=== PATIENT | male | born 1950 | race Caucasian/White ===

== ENCOUNTER → 2016-10-01 | Outpatient (CLI) | payer OTHER, MEDICARE ==
[~2016-10-01] MED LIST: IOPAMIDOL (ISOVUE 370) 100 ML BTL IV ONE
[2016-10-01 10:10] LABS: CREATININE 0.7 mg/dL (0.7-1.3); GLOMERULAR FILTRATION RATE > 60
== END ==
LOC: FIMAGING 09:35
PROVIDERS: ATTEND Psychiatry & Neurology Neurology
DX: R51 Headache (principal); R29.818 Other symptoms and signs involving the nervous system
CPT/HCPCS: 70496; Q9967

== ENCOUNTER 2018-03-14 12:47 | Inpatient (IN) | payer OTHER, MEDICARE ==
[2018-03-14] MEDS ORDERED: NS 1,000 ML IV ONE ×2 (13:07→14:40)
--- NOTE | 2018-03-14 13:27 | EDPHY ---
H & P Stated Complaint: left face swelling today . since yest am felt off .chills Time Seen by Provider: 03/14/18 12:55 HPI/ROS: CHIEF COMPLAINT: Not feeling well, facial swelling HISTORY OF PRESENT ILLNESS: This is a 68-year-old male with history of diabetes and hypertension presents reporting that 2 days ago he began to feel poorly, like he was coming down with the flu. He had a low-grade fever and chills. Yesterday he continued to feel poorly, tired, run down, and had 1 episode of vomiting. This morning when he woke he noticed that the left side of his face was swollen. Patient denies any significant cold or cough symptoms. Denies any chest pain, shortness of breath, or urinary complaints. He has widespread poor dentition and has noticed that the upper left lateral incisor has been somewhat uncomfortable but denies cold sensitivity, hot sensitivity, or significant pain in this area. reports that he was complaining of fevers and chills yesterday but they did not take his temperature. No headache or lightheadedness. REVIEW OF SYSTEMS: A comprehensive 10 system review of systems was reviewed and is otherwise negative aside from elements mentioned in the history of present illness and medical decision making. PAST MEDICAL HISTORY: Diabetes, insulin dependent. Hypertension. SOCIAL HISTORY: Nonsmoker, no marijuana use. Reports rare alcohol use. VITAL SIGNS Reviewed by me. GENERAL: Well-developed, well-nourished, conversant, bright no obvious distress. Significant swelling of the left side of his face with loss of the nasal labial fold and drooping of the left side of the mouth. HEENT: Atraumatic. Eyes: Slight icterus, slightly injected. There is erythema and swelling extending from under the eye to the angle of the jaw. No erythema or swelling or tenderness on the neck. Mouth: moist mucous membranes. No erythema or lesions. Poor dentition throughout. Lateral left upper incisor is broken off with some erythema at the gumline. Posterior pharynx is clear. No tonsillar enlargement. No fullness or tenderness at the floor of the mouth. Neck: supple with no significant adenopathy. LUNGS: Clear to auscultation bilaterally, no wheezes, rhonchi or rales. CARDIAC: Regular rate and rhythm, no rubs, murmurs or gallops. ABDOMEN: Soft, nontender, nondistended, bowel sounds normal. BACK: No CVA tenderness. EXTREMITIES: No trauma. No edema. Range of motion is normal throughout. NEURO: Alert and oriented, left-sided facial droop. Cranial nerves otherwise intact. Motor strength 5/5 throughout with the exception of a symmetrical smile. Sensation intact to light touch. Able to fully close his eyes. Able to raise eyebrows symmetrically. SKIN: Warm and dry, widespread slightly scaly rash. PSYCHIATRIC: Normal mentation, no agitation. - Personal History Current Tetanus/Diphtheria Vaccine: Unsure Current Tetanus Diphtheria and Acellular Pertussis (TDAP): Unsure - Medical/Surgical History Hx Diabetes: Yes Hx Cardiac Disease: No Hx Renal Disease: No Other PMH: DM 2. Cholecystectomy. [facility] - Social History Smoking Status: Never smoked Constitutional: Initial Vital Signs Temperature (C) 37.4 C 03/14/18 12:52 Heart Rate 109 H 03/14/18 12:52 Respiratory Rate 18 03/14/18 12:52 Blood Pressure 155/100 H 03/14/18 12:52 O2 Sat (%) 93 03/14/18 12:52 O2 Delivery Mode Room Air Allergies/Adverse Reactions: No Known Allergies Allergy (Verified 03/14/18 20:36) Home Medications: Medication Instructions Recorded Atorvastatin Calcium [Lipitor 20 20 mg PO DAILY 03/14/18 mg (*)] Insulin Detemir [Levemir Flextouch] 90 unit SQ HS 03/14/18 Losartan/Hydrochlorothiazide 1 each PO HS 03/14/18 [Losartan-Hctz 100-25 mg Tab] Propranolol HCl [Inderal Xl] 120 mg PO HS 03/14/18 amLODIPine BESYLATE [Norvasc 10 mg 10 mg PO DAILY 03/14/18 (*)] metFORMIN HCL [Metformin HCl] 1,000 mg PO HS 03/14/18 Medical Decision Making - Diagnostics Imaging Results: Ct Head: Impression: Normal CT scan of the head. Results called and discussed with Sara Reynolds M.D., on March 14, 2018 at 1621. Dictated By: Noam Frederick MD CT Maxillofacial Impression: Left maxillary sinus opacification with soft tissue inflammatory changes anterior to the sinus with no definite drainable fluid collection identified at this time. Results called and discussed with Dr. Hoang on 03/14/2018 at 16:37. Dictated By: Noam Frederick MD Imaging: Discussed imaging studies w/ prescriptionist Radiologist ED Course/Re-evaluation: 69-year-old male with diabetes and hypertension presents with 2 days of feeling poorly and facial swelling today. On arrival he has a low-grade at 37.4 and a heart rate of 109. He describes fevers and chills at home. Evaluation for sepsis was undertaken. Patient's lactic acid is 1.5. Bilirubin is 2.5. Review of the records demonstrates patient's bilirubin has typically run between 1.7 and 2. Point of care testing for the CBC malfunctioned on numerous occasions. CBC was ordered at the [facility]. Patient received a L of normal saline. Heart rate diminished to 95. Repeat temperature was 37.5 degrees. Patient received 1 g Tylenol. On re-examination the patient reports feeling terrible, still achy, but overall looks relatively well. He does have an obvious left-sided facial droop which he and his state he has not had previously. Unclear if this is secondary to the swelling on the face, involvement of the peripheral 7th nerve, I see no rash to indicate herpes zoster. No headache. Patient noted the swelling on the side of his face this morning when he woke. Patient's course was discussed with Dr. Joe Deng, hospitalist service. At the time of this discussion the patient's CBC is pending. We will plan to admit the patient to the hospital for rule out sepsis, facial cellulitis, fever , diabetes. CT scan of the head as well as CT maxillofacial with IV contrast was ordered prior to the patient's transfer to [facility]. Clindamycin 600 mg ordered. Blood cultures were ordered. Urinalysis and urine culture was ordered. Differential Diagnosis: Differential diagnoses for the patient's symptom complex was considered including but not limited to the facial cellulitis, sinusitis, Patel's palsy, soft tissue section the neck, deep space abscess. Consult/Admit Bed Type: Dr. Ricth[facility] - Data Points Laboratory Results: Laboratory Results 03/15/18 04:38 03/15/18 04:38 Medications Given: Amlodipine Besylate (Norvasc) 10 mg PO HS [facility] Stop: 09/10/18 20:59 Last Admin: 03/15/18 21:47 Dose: 10 mg Atorvastatin Calcium (Lipitor) 20 mg PO HS [facility] Stop: 09/10/18 20:59 Last Admin: 03/15/18 21:47 Dose: 20 mg Enoxaparin Sodium (Lovenox) 40 mg SC DAILY [facility] Stop: 09/11/18 08:59 Last Admin: 03/15/18 09:11 Dose: 40 mg Hydrochlorothiazide (Hydrochlorothiazide) 25 mg PO HS [facility] Stop: 09/10/18 22:14 Last Admin: 03/15/18 21:44 Dose: 25 mg Sodium Chloride (Ns) 1,000 mls @ 75 mls/hr IV CONT [facility] Stop: 09/10/18 18:44 Last Admin: 03/14/18 19:59 Dose: 1,000 mls Ampicillin Sodium/Sulbactam (Sodium 3 gm/ Sodium Chloride) 100 mls @ 200 mls/ hr IV Q6HRS [facility] PRN Reason: Protocol Stop: 04/14/18 10:59 Last Admin: 03/15/18 23:58 Dose: 100 mls Insulin Human Lispro (Humalog Lispro) 0 unit SC TIDMEAL [facility] PRN Reason: Protocol Stop: 09/11/18 07:59 Last Admin: 03/15/18 21:31 Dose: Not Given Losartan Potassium (Cozaar) 100 mg PO HS [facility] Stop: 09/10/18 22:14 Last Admin: 03/15/18 21:44 Dose: 100 mg Miscellaneous Medication (Insulin Detemir [Levemir Flextouch]) 90 unit SQ HS [facility] Stop: 09/10/18 22:44 Last Admin: 03/14/18 22:43 Dose: 90 units Propranolol HCl (Inderal La) 120 mg PO HS [facility] Stop: 09/11/18 20:59 Last Admin: 03/15/18 21:47 Dose: 120 mg Discontinued Medications Acetaminophen (Tylenol) 1,000 mg PO EDNOW ONE Stop: 03/14/18 14:04 Last Admin: 03/14/18 14:10 Dose: 1,000 mg Bacitracin (Bacitracin Ointment Tube) Confirm Administered Dose 14.2 homer TP .STK -MED ONE Stop: 03/15/18 17:26 Last Admin: 03/15/18 18:51 Dose: Not Given Bacitracin (Bacitracin Syringe) Confirm Administered Dose 50,000 units IRR .STK- MED ONE Stop: 03/15/18 17:54 Last Admin: 03/15/18 18:50 Dose: 50,000 units Bupivacaine HCl/Epinephrine Bitart (Bupivacaine/Epi) Confirm Administered Dose 30 ml .ROUTE .STK-MED ONE Stop: 03/15/18 17:26 Last Admin: 03/15/18 18:51 Dose: 6 ml Chlorhexidine Gluconate (Peridex) Confirm Administered Dose 15 ml .ROUTE .STK- MED ONE Stop: 03/15/18 18:08 Last Admin: 03/15/18 18:51 Dose: 15 ml Sodium Chloride (Ns) 1,000 mls @ 0 mls/hr IV ONCE ONE; Wide Open PRN Reason: Protocol Stop: 03/14/18 13:08 Last Admin: 03/14/18 13:38 Dose: 1,000 mls Clindamycin Phosphate/Dextrose (Cleocin 600 Mg (Premix)) 50 mls @ 100 mls/hr IV EDNOW ONE PRN Reason: Protocol Stop: 03/14/18 14:03 Last Admin: 03/14/18 14:00 Dose: 50 mls Sodium Chloride (Ns) 1,000 mls @ 0 mls/hr IV ONCE ONE; Wide Open PRN Reason: Protocol Stop: 03/14/18 14:41 Last Admin: 03/14/18 14:40 Dose: 1,000 mls Cefazolin Sodium/Dextrose (Ancef) 100 mls @ 200 mls/hr IV Q8H [facility] PRN Reason: Protocol Stop: 04/13/18 18:59 Last Admin: 03/15/18 04:02 Dose: 100 mls Potassium Chloride (Potassium Cl 10 Meq (Premix)) 100 mls @ 100 mls/hr IV Q1H [facility] Stop: 03/15/18 19:59 Last Admin: 03/15/18 21:43 Dose: 100 mls Insulin Human Lispro (Humalog Lispro) 6 unit SC ONCE ONE Stop: 03/14/18 22:31 Last Admin: 03/14/18 22:25 Dose: 6 unit Miscellaneous Medication (Propranolol Hcl [Inderal Xl]) 120 mg PO HS [facility] Stop: 03/14/18 23:55 Last Admin: 03/14/18 22:22 Dose: 120 mg Miscellaneous Medication (Levemir) 45 units SQ ONCE ONE Stop: 03/15/18 21:01 Last Admin: 03/15/18 21:43 Dose: 45 unit Phenylephrine HCl (Neosynephrine) Confirm Administered Dose 15 spray .ROUTE .STK -MED ONE Stop: 03/15/18 17:21 Last Admin: 03/15/18 21:30 Dose: Not Given Polymyxin B Sulfate (Polymyxin B Syringe) Confirm Administered Dose 500,000 unit IRR .STK-MED ONE Stop: 03/15/18 17:54 Last Admin: 03/15/18 18:52 Dose: 500,000 unit Point of Care Test Results: Chemistry 03/15/18 03/14/18 03/14/18 07:45 20:36 14:03 POC Sodium POC Potassium POC Chloride POC Total CO2 POC BUN POC Creatinine POC Glucose 98 mg/dL mg/dL 232 mg/dL H mg/dL (70-100) (70-100) POC Calcium POC Total Bilirubin 2.5 mg/dL H mg/dL (0.1-1.4) POC GGT 28 IU/L IU/L (5-65) POC AST 24 IU/L IU/L (17-59) POC ALT 26 IU/L IU/L (21-72) POC Alk Phosphatase 74 IU/L IU/L (38-126) POC Total Protein 8.4 g/dL H g/dL (6.3-8.2) POC Albumin 3.8 g/dL g/dL (3.5-5.0) POC Amylase 24 IU/L L IU/L (30-110) 03/14/18 13:38 POC Sodium 135 mEq/L mEq/L (135-145) POC Potassium 3.8 mEq/L mEq/L (3.3-5.0) POC Chloride 102.0 mEq/L mEq/L (97-110) POC Total CO2 32 mEq/L H mEq/L (22-31) POC BUN 10 mg/dL mg/dL (7-23) POC Creatinine 0.6 mg/dL L mg/dL (0.7-1.3) POC Glucose 177 mg/dL H mg/dL (70-100) POC Calcium 9.1 mg/dL mg/dL (8.5-10.4) POC Total Bilirubin 2.6 mg/dL H mg/dL (0.1-1.4) POC GGT POC AST 26 IU/L IU/L (17-59) POC ALT 29 IU/L IU/L (21-72) POC Alk Phosphatase 74 IU/L IU/L (38-126) POC Total Protein 8.5 g/dL H g/dL (6.3-8.2) POC Albumin 3.8 g/dL g/dL (3.5-5.0) POC Amylase Blood Gas/Lactic Acid-Venous 03/14/18 13:34 POC Lactic Acid Brian 1.5 mmol/L mmol/L (0.7-2.1) Urine Dip Collection Date 03/14/18 Collection Time 14:45 Specific [place] (1.002-1.030) 1.020 PH (5.0-7.5) 6.5 Leukocytes (Negative) Negative Nitrites (Negative) Negative Protein (Negative) 2+ Glucose (Negative) Negative Ketones (Negative) Negative Urobilnogen (0.2-1.0 EU) 2.0 Bilirubin (Negative) Negative Blood (Negative) Trace Departure - Departure Disposition: [facility] [place] [facility] Acute Clinical Impression: Facial cellulitis Fever Qualifiers: Fever type: due to other condition Qualified Code(s): R50.81 - Fever presenting with conditions classified elsewhere Diabetes Qualifiers: Diabetes mellitus type: type 1 Diabetes mellitus complication status: without complication Qualified Code(s): E10.9 - Type 1 diabetes mellitus without complications Condition: Fair
[2018-03-14] MEDS ORDERED: CLINDAMYCIN 600 MG/DEXTROSE 50 ML IV ONE (13:34)
[2018-03-14] MEDS: ACETAMINOPHEN 500 MG TAB PO ONE ×2 (14:08→14:10)
[2018-03-14 15:18] LABS: PLATELET COUNT 280 10^3/uL (150-400)
[2018-03-14] MEDS ORDERED: IOPAMIDOL (ISOVUE-300) 100 ML BTL ONE (15:31)
[2018-03-14] MEDS ORDERED: PROMETHAZINE HCL 25 MG/ML INJ IVP PRN (18:38)
[2018-03-14] MEDS ORDERED: ONDANSETRON 4 MG/2 ML VIAL IVP PRN (18:38)
[2018-03-14] MEDS ORDERED: oxyCODONE IR 5 MG TAB PO PRN (18:38)
[2018-03-14] MEDS ORDERED: HYDROmorphONE/DILAUDID 1 MG/ML INJ IVP PRN (18:38)
[2018-03-14] MEDS ORDERED: HYDROCODONE/APAP 5/325 TAB PO PRN (18:38)
[2018-03-14] MEDS ORDERED: ONDANSETRON DISINTEGRATING 4 MG TAB PO PRN (18:38)
[2018-03-14] MEDS ORDERED: ACETAMINOPHEN 325 MG TAB PO PRN (18:38)
[2018-03-14] MEDS ORDERED: hydrALAZINE 20 MG/ML VIAL IVP PRN (18:39)
[2018-03-14] MEDS ORDERED: NS 1,000 ML IV SCH (18:45)
[2018-03-14] MEDS: ceFAZolin 2 GM/DEXTROSE 100 ML IV SCH (19:59)
--- NOTE | 2018-03-14 20:13 | PDGENHP ---
History and Physical - Chief Complaint fever, chills, facial swelling/redness - History of Present Illness Patient is a 68 yo M with PMH of DM, HTN presenting with several days of feeling ill, fever, chills and flu like sxs followed by 24 hours of left face redness and swelling. He notes he has never had similar issues in the past. He has not had any injuries or cuts to his face. He denies any changes in his vision or pain with moving his eye. He did have an episode of nausea and vomiting yesterday that has since resolved and otherwise feels generally exhausted currently. History Information - Allergies/Home Medication List Allergies/Adverse Reactions: No Known Allergies Allergy (Verified 03/14/18 13:00) Home Medications: Amlodipine Besylate 03/14/18 [Last Taken Unknown] Atorvastatin Calcium 03/14/18 [Last Taken Unknown] Levemir 03/14/18 [Last Taken Unknown] Losartan Potassium 03/14/18 [Last Taken Unknown] Metformin HCl 03/14/18 [Last Taken Unknown] Propranolol HCl ER 03/14/18 [Last Taken Unknown] I have personally reviewed and updated: family history, medical history, social history, surgical history - Past Medical History diabetes type 2, hypertension, hyperlipidemia - Surgical History Reports: cholecystectomy Additional surgical history: shoulder surgery - Family History Positive for: non-pertinent - Social History Smoking Status: Never smoked Alcohol Use: Rarely Drug Use: None Additional social history: owns a [employer] Review of Systems Review of Systems: ROS: 10pt was reviewed & negative except for what was stated in HPI & below Physical Exam Physical Exam: Temp Pulse Resp BP Pulse Ox 37.1 C 98 18 150/80 H 92 03/14/18 19:57 03/14/18 19:57 03/14/18 19:57 03/14/18 19:57 03/14/18 19:57 Constitutional: no apparent distress, appears nourished Eyes: PERRL, anicteric sclera, EOMI, scleral injection Ears, Nose, Mouth, Throat: moist mucous membranes, hearing normal, poor dentition Cardiovascular: regular rate and rhythym, no murmur, rub, or gallop, No edema Respiratory: no respiratory distress, no rales or rhonchi Gastrointestinal: normoactive bowel sounds, soft, non-tender abdomen Genitourinary: no bladder tenderness Skin: warm, erythema (over the left face with associated edema) Musculoskeletal: full muscle strength Neurologic: AAOx3 Psychiatric: interacting appropriately, not anxious, not encephalopathic Lab Data & Imaging Review 03/14/18 13:25 WBC 12.58 10^3/uL (3.80-9.50) H 03/14/18 13:25 RBC 5.77 10^6/uL (4.40-6.38) 03/14/18 13:25 Hgb 15.4 g/dL (13.7-17.5) 03/14/18 13:25 Hct 46.4 % (40.0-51.0) 03/14/18 13:25 MCV 80.4 fL (81.5-99.8) L 03/14/18 13:25 MCH 26.7 pg (27.9-34.1) L 03/14/18 13:25 MCHC 33.2 g/dL (32.4-36.7) 03/14/18 13:25 RDW 14.5 % (11.5-15.2) 03/14/18 13:25 Plt Count 280 10^3/uL (150-400) 03/14/18 13:25 MPV 10.4 fL (8.7-11.7) 03/14/18 13:25 Neut % (Auto) 77.5 % (39.3-74.2) H 03/14/18 13:25 Lymph % (Auto) 12.1 % (15.0-45.0) L 03/14/18 13:25 Letcher % (Auto) 9.8 % (4.5-13.0) 03/14/18 13:25 Eos % (Auto) 0.1 % (0.6-7.6) L 03/14/18 13:25 Baso % (Auto) 0.2 % (0.3-1.7) L 03/14/18 13:25 Nucleat RBC Rel Count 0.0 % (0.0-0.2) 03/14/18 13:25 Absolute Neuts (auto) 9.75 10^3/uL (1.70-6.50) H 03/14/18 13:25 Absolute Lymphs (auto) 1.52 10^3/uL (1.00-3.00) 03/14/18 13:25 Absolute Monos (auto) 1.23 10^3/uL (0.30-0.80) H 03/14/18 13:25 Absolute Eos (auto) 0.01 10^3/uL (0.03-0.40) L 03/14/18 13:25 Absolute Basos (auto) 0.03 10^3/uL (0.02-0.10) 03/14/18 13:25 Absolute Nucleated RBC 0.00 10^3/uL (0-0.01) 03/14/18 13:25 Immature Gran % 0.3 % (0.0-1.1) 03/14/18 13:25 Immature Gran # 0.04 10^3/uL (0.00-0.10) 03/14/18 13:25 POC Sodium 135 mEq/L (135-145) 03/14/18 13:38 POC Potassium 3.8 mEq/L (3.3-5.0) 03/14/18 13:38 POC Chloride 102.0 mEq/L (97-110) 03/14/18 13:38 POC Total CO2 32 mEq/L (22-31) H 03/14/18 13:38 POC BUN 10 mg/dL (7-23) 03/14/18 13:38 POC Creatinine 0.6 mg/dL (0.7-1.3) L 03/14/18 13:38 POC Glucose 177 mg/dL (70-100) H 03/14/18 13:38 POC Lactic Acid Brian 1.5 mmol/L (0.7-2.1) 03/14/18 13:34 POC Calcium 9.1 mg/dL (8.5-10.4) 03/14/18 13:38 POC Total Bilirubin 2.5 mg/dL (0.1-1.4) H 03/14/18 14:03 POC GGT 28 IU/L (5-65) 03/14/18 14:03 POC AST 24 IU/L (17-59) 03/14/18 14:03 POC ALT 26 IU/L (21-72) 03/14/18 14:03 POC Alk Phosphatase 74 IU/L (38-126) 03/14/18 14:03 POC Total Protein 8.4 g/dL (6.3-8.2) H 03/14/18 14:03 POC Albumin 3.8 g/dL (3.5-5.0) 03/14/18 14:03 POC Amylase 24 IU/L (30-110) L 03/14/18 14:03 Visualized and Interpreted imaging results: Yes Interpretation: head and face CT: no abscess or orbital involvement Assessment & Plan Assessment: Diabetes (Acute) Facial cellulitis (Acute) Fever (Acute) 68 yo M with PMH of DM, HTN presenting with facial cellulitis and sepsis # facial cellulitis: with significant edema and erythema but no orbital involvement on exam or by imaging though the area involved is near the orbit. Has received one dose of clindamycin in ER and for now will transition to ancef. Will ask for ID to further evaluate in am. Patient counseled regarding contacting staff should any changes in his vision or pain with eye movement develop. # DM: patient notes this has been under better control of late, will continue home medications once confirmed by pharmacy, for now will start SSI # HTN: patient states this too has been under better control recently, continue home medications # HLD: continue statin # observation status, will likely require < 48 hours stay for eval/mgmt of above Patient new to my care. Old records reviewed and summarized as above. Care plan reviewed with UC MD as above, Further hx obtained from patients present at bedside.
[2018-03-14] MEDS ORDERED: D50W 25 GM/50 ML SYR IVP PRN (20:22)
[2018-03-14] MEDS ORDERED: PROPRANOLOL HCL 120 MG PO SCH (21:00)
[2018-03-14] MEDS: ATORVASTATIN CALCIUM 20 MG TAB PO SCH (22:22)
[2018-03-14] MEDS: LOSARTAN POTASSIUM 50 MG TAB PO SCH (22:23)
[2018-03-14] MEDS: HYDROCHLOROTHIAZIDE 25 MG TAB PO SCH (22:23)
[2018-03-14] MEDS ORDERED: INSULIN LISPRO 100 UNIT/ML SC ONE (22:30)
[2018-03-14] MEDS ORDERED: INSULIN DETEMIR 90 UNIT SQ SCH (22:45)
[2018-03-15] MEDS: ceFAZolin 2 GM/DEXTROSE 100 ML IV SCH (04:02)
[2018-03-15 06:07] LABS: PLATELET COUNT 214 10^3/uL (150-400)
[2018-03-15] MEDS: INSULIN LISPRO 100 UNIT/ML SC SCH ×3 (07:55→21:31)
[2018-03-15] MEDS: ENOXAPARIN 40 MG/0.4 ML SYR SC SCH (09:11)
--- NOTE | 2018-03-15 10:59 | HOSPPROG ---
Hospitalist Progress Note Assessment/Plan: 68 yo M with PMH of DM, HTN presenting with facial cellulitis and sepsis. First encounter, chart reviewed. D/W Dr Matute and Dr Conteh. # facial cellulitis: -likely second to dental issue, abnormal "growth" in mouth -consulted Dr Matute, possible OR today -with significant edema and erythema -no orbital involvement, vision intact - clindamycin in ER, ancef and now unasyn - appreciate ID # DM: -patient notes this has been under better control of late -continue home medications #Poor dentition: -will need significant outpatient follow up # HTN: - patient states this too has been under better control recently, -continue home medications # HLD: - continue statin #LFT: -in setting of infection -stable # Dispo -change to inpt status -pt will likely need to go to the OR today -NPO -cont IV abx Subjective: Up in bed. Feeling well. Face feels swollen and tight. Objective: Vital Signs Temp Pulse Resp BP Pulse Ox 36.7 C 97 16 115/54 L 94 03/15/18 07:40 03/15/18 07:40 03/15/18 07:40 03/15/18 07:40 03/15/18 07:40 Laboratory Results 03/15/18 04:38 03/15/18 04:38 03/14/18 03/15/18 03/16/18 05:59 05:59 05:59 Intake Total 2500 1082 Balance 2500 1082 - Physical Exam Constitutional: appears nourished, not in pain, obese Eyes: PERRL, anicteric sclera, EOMI Ears, Nose, Mouth, Throat: moist mucous membranes, hearing normal, ears appear normal, oral ulcer, poor dentition Cardiovascular: regular rate and rhythym, No JVD, No tachycardia, No edema Respiratory: no respiratory distress, no rales or rhonchi, reduced air movement Gastrointestinal: normoactive bowel sounds, No tenderness, No ascites Skin: warm, erythema, No mottled Musculoskeletal: full muscle strength, normal joint ROM, no joint effusions Neurologic: AAOx3 Psychiatric: interacting appropriately, not anxious, not encephalopathic, thought process linear ICD10 Worksheet Patient Problems: Problems Problem Status Onset Facial cellulitis Acute Fever Acute Diabetes Acute
--- NOTE | 2018-03-15 11:23 | GCON ---
INFECTIOUS DISEASE CONSULT REQUESTING PROVIDER: Adelina Alston NP. REASON FOR CONSULT: To assist in the management of this 68-year-old male with facial cellulitis. HISTORY OF PRESENT ILLNESS: The patient is a 68-year-old male whose previous medical history is notable for the followin. Obesity. 2. Diabetes mellitus type 2: The patient's last hemoglobin A1c was 7.5 on January 30, 2018. He is followed by Dr. Aziza Alcala. 3. Hyperlipidemia. 4. Hypertension. Regarding his present issues, the patient tells me that he woke up yesterday morning and noted that his left cheek was swollen and slightly pinkish. A couple of days previously, he reported some flu-like symptoms and nausea. He denies any injuries to his face, cuts or scrapes. No sinus tenderness or ear pain or discharge from his nose. Regarding his teeth, I asked him when the last time he went to the dentist, and he told me "decades." The patient denied any tooth pain or pain with mastication. He denies any recent chipped or cracked teeth that he is aware of. Because of ongoing symptoms, the patient presented to [facility] for further evaluation and treatment. He was stable in the ER and given a dose of clindamycin. A head CT was negative; a facial CT was also performed. I reviewed this with Dr. Wiggins today. The patient does have a partially opacified left maxillary sinus, with evidence of extremely bad teeth and a cracked tooth in the maxillary area in the front. It was noted that the patient 's teeth were in extremely poor repair. Because of the facial cellulitis, I am now asked to assist in his treatment. Of note, the patient was given a dose of clindamycin, but subsequently started on Ancef. He feels "the same" today, no better. He states that his appetite has returned. REVIEW OF SYSTEMS: As outlined above. Otherwise, 10 systems are reviewed, and all are negative. PREVIOUS MEDICAL HISTORY: As outlined above. ALLERGIES: No known drug allergies. MEDICATIONS: Presently include: 1. Ancef 2 g IV q.8 hours. 2. Amlodipine 10 mg p.o. h.s. 3. Atorvastatin 20 mg p.o. h.s. 4. Hydralazine 10 mg p.r.n. 5. Hydrochlorothiazide 25 mg h.s. 6. Dilaudid p.r.n. 7. Metformin 1 g p.o. h.s. 8. Zofran p.r.n. 9. Phenergan. 10. Oxycodone. SOCIAL HISTORY: The patient runs a [employer]. Denies tobacco, alcohol , or any illicit substances. No recent travel within or outside [place]. He does have a cat, but denies any cat scratches, bites, or licks. No unusual exposures otherwise. FAMILY HISTORY: Unremarkable. PHYSICAL EXAM: VITAL SIGNS: T-current is 36.7, T-max 37.4, heart rate 97, blood pressure 115/54, 94% on room air. GENERAL: Obese gentleman, nontoxic, no apparent distress. HEENT: The patient has a somewhat bulbous nose consistent with rhinophyma, but no evidence of vestibulitis or discharge from the nares. Pupils are equal, round, reactive to light. Extraocular movements are intact. No conjunctival injection or icterus or petechiae. There is no sinus process tenderness of his maxillary sinuses or elsewhere. The ears look normal, but there is some slight swelling of the left cheek that is notable, along with some mild drooping of the face as well. The oropharynx is notable for no posterior oropharyngeal erythema. His dentition is in extremely poor repair. I did put gloves on and feel all of his teeth. The patient's left front incisor on the left side is notable for a small, pea-sized, purplish nodule in the gumline that is quite tender. The patient states this is new over the past 24 hours. I could not milk any purulence from this area, although the tooth directly beneath it was cracked and carious. The rest of his teeth were eroded, many of which have crowns, but could not elicit any tenderness from his teeth. NECK: No cervical or supraclavicular lymphadenopathy. Trachea is midline. CARDIOVASCULAR: S1, S2. No rubs, gallops, or murmurs. LUNGS: No increased respiratory effort. Clear to auscultation bilaterally. No rales, rhonchi, or wheeze. ABDOMEN: Obese, soft. No organomegaly or tenderness to palpation. EXTREMITIES: No clubbing, cyanosis, edema, or muscle belly tenderness. SKIN: There is no significant overlying erythema of his left cheek that I can appreciate. It is only swollen , and the findings as outlined above. The rest of his skin is dry, notable for some seborrheic keratoses on his hands and arms. He does have some onychomycosis of his toenails with overgrown toenails. NEUROLOGIC: He is alert and oriented x3. No focal deficits. LABORATORY DATA: Microbiologic data: Blood cultures x2 are pending. BUN and creatinine 10/0.7. AST of 15, ALT of 31. White blood cell count of 9.5, down from 12.5 yesterday, hematocrit 39, platelet count of 214. Radiographic data as outlined above. IMPRESSION: 68-year-old diabetic male with left facial swelling/cellulitis that is almost certainly originating from an odontogenic infection. Suspect polymicrobial process; although he is diabetic, Pseudomonas seems less likely. No history of MRSA. PLAN: 1. Discontinue Ancef; start Unasyn 3 g IV q.6 hours. 2. I have spoken with the hospitalist, Adelina Alston NP, who called Dr. Shaggy Matute of all oral surgery. He will take the patient to the operating room this afternoon for tooth extraction and possible biopsy of the gum abnormality. His assistance is greatly appreciated. Patient will likely need all of his teeth extracted moving forward to prevent recurrent infections. Thank you very much for consulting Infectious Diseases. We will continue to follow the patient with you. /[id number]/MODL MTDD
[2018-03-15] MEDS: AMPICILLIN/SULBACTAM 3 GM in NS 100 ML IV SCH ×3 (11:37→23:58)
--- NOTE | 2018-03-15 13:31 | PDMN ---
Medical Necessity Medical necessity: [place] M70 Cellulitis, A-2 days: 68 yo presents w/ facial cellulitis. ID consult states left facial swelling/cellulitis prob from odontogenic infection. Oral surgery consult, pt surg pending for tooth extraction and bx. IV antibx to cont, started w/ clindamycin, switched to ancef , then switched to unasyn. Change to IP status per MD order 03/15/19@1018 as pt will need to cont antibx and go to OR today for urgent oral surgery. Hx DM, HTN, obesity
--- NOTE | 2018-03-15 15:30 | ASMTCMCOM ---
CM Note CM Note Notes: Reviewed chart, spoke with Adelina Alston NP regarding discharge plan of care, pt's progress. Pt admitted for facial cellulitis, fever, chills. Per Adelina, pt headed to OR today. History includes type 2 DM, HTN, HLD. Pt is and lives with his . 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 Discharge needs remain unclear at this time. CM will continue to follow. Discharge Plan: To be determined Date Signed: 03/15/2018 03:29 PM Electronically Signed By:Elizabeth Delgado RN
[2018-03-15] MEDS ORDERED: fentaNYL 250 MCG/5 ML INJ ONE (17:13)
[2018-03-15] MEDS ORDERED: DEXAMETHASONE 4 MG/ML VIAL ONE (17:13)
[2018-03-15] MEDS ORDERED: PROPOFOL 200 MG/20 ML VIAL ONE ×2 (17:13→18:06)
[2018-03-15] MEDS ORDERED: ROCURONIUM 50 MG/5 ML VIAL ONE (17:13)
[2018-03-15] MEDS ORDERED: PHENYLEPHRINE 0.25% NASAL 15 ML SPRAY ONE (17:20)
[2018-03-15] MEDS ORDERED: BACITRACIN ZINC 14.2 GM OINTTUBE TP ONE (17:25)
[2018-03-15] MEDS ORDERED: BUPIVACAINE/EPI 0.25% 30 ML SDV ONE (17:25)
--- NOTE | 2018-03-15 17:28 | PDANEPAE ---
ANE History of Present Illness I&D of tooth abcess. ANE Past Medical History - Cardiovascular History Hx Hypertension: Yes Hx Arrhythmias: No Hx Chest Pain: No Hx CHF / Valvular Disease: No Hx Palpitations: No Cardiovascular History Comment: HPL - Pulmonary History Hx COPD: No Hx Asthma/Reactive Airway Disease: No Hx Recent Upper Respiratory Infection: No Hx Oxygen in Use at Home: No Hx Sleep Apnea: No Sleep Apnea Screening Result - Last Documented: Positive - Neurologic History Hx Cerebrovascular Accident: No Hx Seizures: No Hx Dementia: No Neurologic History Comment: pt denies peripheral neuropathy syptoms - Endocrine History Hx Diabetes: Yes Hypothyroid: No Hyperthyroid: No Obesity: moderate - Renal History Hx Renal Disorders: No - Liver History Hx Hepatic Disorders: No - Neurological & Psychiatric Hx Hx Neurological and Psychiatric Disorders: No - Cancer History Hx Cancer: No - GI History GERD: no Hx Gastrointestinal Disorders: No - Other Health History Other Health History: Hypokalemia noted today, receiving KCL - Chronic Pain History Chronic Pain: No - Surgical History Prior Surgeries: s/p R rotator cuff repair, s/p cholecystectomy ANE Review of Systems Review of Systems: - Exercise capacity METS (RN): 4 METS ANE Patient History - Allergies Allergies/Adverse Reactions: No Known Allergies Allergy (Verified 03/14/18 20:36) - Home Medications Home Medications: Atorvastatin Calcium [Lipitor 20 mg (*)] 20 mg PO DAILY 03/14/18 [Last Taken Unknown] Insulin Detemir [Levemir Flextouch] 90 unit SQ HS 03/14/18 [Last Taken Unknown] Losartan/Hydrochlorothiazide [Losartan-Hctz 100-25 mg Tab] 1 each PO HS [Last Taken Unknown] Propranolol HCl [Inderal Xl] 120 mg PO HS 03/14/18 [Last Taken Unknown] amLODIPine BESYLATE [Norvasc 10 mg (*)] 10 mg PO DAILY 03/14/18 [Last Taken Unknown] metFORMIN HCL [Metformin HCl] 1,000 mg PO HS 03/14/18 [Last Taken Unknown] - NPO status NPO Since - Liquids (Date): 03/15/18 NPO Since - Liquids (Time): 09:30 NPO Since - Solids (Date): 03/15/18 NPO Since - Solids (Time): 09:30 - Smoking Hx Smoking Status: Never smoked - Alcohol Use Alcohol Use: Rarely ANE Labs/Vital Signs - Labs Result Diagrams: 03/15/18 04:38 03/15/18 04:38 - Vital Signs Blood Pressure: 120/66 Heart Rate: 84 Respiratory Rate: 16 O2 Sat (%): 96 Height: 185.42 cm Weight: 120.202 kg ANE Physical Exam - Airway Neck exam: FROM, short neck Mouth exam: poor dentition, abnormal chin (short TMD) - Pulmonary Pulmonary: clear to auscultation - Cardiovascular Cardiovascular: regular rate and rhythym - ASA Status ASA Status: III ANE Anesthesia Plan Anesthesia Plan: general endotracheal anesthesia
[2018-03-15] MEDS: POTASSIUM Cl (KCl) 100 ML IV SCH ×3 (17:35→21:43)
[2018-03-15] MEDS ORDERED: MIDAZOLAM 2 MG/2 ML VIAL ONE (17:44)
[2018-03-15] MEDS ORDERED: POLYMYXIN B SULFATE 500,000 UNIT/10 ML SYR IRR ONE (17:53)
[2018-03-15] MEDS ORDERED: BACITRACIN 50,000 UNITS/10 ML SYR IRR ONE (17:53)
[2018-03-15] MEDS ORDERED: CHLORHEXIDINE GLUCONATE 15 ML UDL ONE (18:07)
--- NOTE | 2018-03-15 18:18 | GCON ---
HISTORY OF PRESENT ILLNESS: Mati is a 68-year-old male, who was admitted to [facility] yesterday with left-sided facial cellulitis. On a radiographic examination, it was noted that he had an associated odontogenic abscess, and I was consulted to evaluate the infection for treatment. Medical history was reviewed with the patient and his . The patient states that he has not been to see a dentist in over a decade and he reports poor oral hygiene at home. PHYSICAL EXAMINATION: HEENT: Facial examination reveals left-sided cellulitis involving the canine space with some associated orbital cellulitis. Intraoral examination reveals poorly restored dentition with multiple decayed teeth. Specifically tooth number 11 is fractured off at the gingival level and there is an associated odontogenic abscess, which is resulting in the left-sided facial cellulitis. Radiograph confirms intraoral findings. 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 DISPOSITION: Findings were discussed in detail with the patient and his . All questions were answered. I informed the patient that he would require extraction of tooth #11 with associated incision and drainage of that tooth. I also informed him that if any other teeth were associated with the abscess, I would take those out as well in the operating room. He has reported a desire to replace the tooth with an implant. I have informed him that because of the active infection, I cannot perform bone grafting today. However, if he would like to come back to the clinic in subsequent days following resolution of the infection, I would be able to perform bone grafting in that area. I have also given him and his a referral to Dr. Tony Gleason, who is a restorative dentist in [place], [place], where they live so he can start receiving routine professional oral care. The risks, benefits, and consequences of the procedure were discussed in detail. Signed and verbal consent was obtained. The patient will be taken to the operating room today. He is n.p.o. since 9:30 this morning. He will be admitted back onto the hospital service following surgery for continued IV antibiotic therapy. He will be discharged whenever they feel he is stable. /[id number]/MODL MTDD
[2018-03-15] MEDS ORDERED: SUGAMMADEX SODIUM 200 MG/2 ML VIAL IVP ONE ×2 (18:24)
[2018-03-15] MEDS ORDERED: NALOXONE HCL 0.4 MG/ML INJ IVP PRN (18:32)
[2018-03-15] MEDS ORDERED: ONDANSETRON 4 MG/2 ML VIAL IVP PRN (18:32)
[2018-03-15] MEDS ORDERED: fentaNYL 100 MCG/2 ML INJ IVP PRN (18:32)
--- NOTE | 2018-03-15 18:51 | POSTANESTH ---
Post Anesthetic Evaluation Cardiovascular Status: Similar to Pre-Op Cond Respiratory Status: Similar to Pre-op Cond. Level of Consciousness/Mental Status: Can Participate in Eval Pain Control: Adequate, Prn Tx Ordered Nausea/Vomiting Control: Adequate, Prn Tx Ordered Complications Possibly Related to Anesthesia: None Noted (Difficult intubation discussed with patient and his . Questions answered.)
--- NOTE | 2018-03-15 18:58 | GOP ---
DATE OF OPERATION: 03/15/2018 SURGEON: Danny Matute DDS ANESTHESIA: General anesthesia. PREOPERATIVE DIAGNOSIS: 1. Left canine space odontogenic abscess. 2. Dental caries. POSTOPERATIVE DIAGNOSIS: 1. Left canine space odontogenic abscess. 2. Dental caries. PROCEDURE PERFORMED: 1. Incision and drainage of left canine space odontogenic abscess. 2. Surgical extraction of tooth #11. FINDINGS: Left canine space odontogenic abscess. ESTIMATED BLOOD LOSS: Minimal. INDICATIONS: The patient is a 68-year-old male with a moderately complex past medical history, who was admitted to [facility] yesterday for left facial cellulitis which was later determined to be odontogenic in origin. He was evaluated as an inpatient today and determined that he had a left canine space odontogenic abscess associated with carious tooth #11. Signed and verbal consent were obtained for surgery. He presented n.p.o. DESCRIPTION OF PROCEDURE: The patient was transported to the OR and onto the operating room table. Following successful oral intubation, the patient received an oral prep. 4 cc of 0.5% Marcaine with 1:200,000 epinephrine was infiltrated into the left canine space and into the palatal mucosa adjacent to tooth #11. A #15 blade was used to make a sulcular incision. Subperiosteal dissection was performed into the canine space, and approximately 2 cc of purulent material was evacuated from the extraction site. Next, tooth #11 was elevated and extracted. The extraction site was curetted free of granulation. The abscess cavity and extraction site were irrigated with normal saline impregnated with bacitracin and polymyxin. The area was left open to drain, and no packing was placed. The patient was allowed to awake from anesthesia and transported to the OR in stable condition. FLUIDS: 600 cc. DISPOSITION: He will be transported back onto the floor, where he will continue to receive IV antibiotics. As soon as he is discharged from the hospital, I will see him in the clinic this week for evaluation of the odontogenic abscess and possible bone grafting of site #11. /[id number]/MODL MTDD
[2018-03-15] MEDS ORDERED: LEVEMIR SQ ONE (21:00)
[2018-03-15] MEDS ORDERED: PROPRANOLOL SR 60 MG CAP PO SCH (21:00)
[2018-03-15] MEDS: HYDROCHLOROTHIAZIDE 25 MG TAB PO SCH (21:44)
[2018-03-15] MEDS: LOSARTAN POTASSIUM 50 MG TAB PO SCH (21:44)
[2018-03-15] MEDS: ATORVASTATIN CALCIUM 20 MG TAB PO SCH (21:47)
[2018-03-16] MEDS: AMPICILLIN/SULBACTAM 3 GM in NS 100 ML IV SCH ×2 (05:15→11:49)
[2018-03-16 07:38] VITALS: BP 125/68
[2018-03-16] MEDS: INSULIN LISPRO 100 UNIT/ML SC SCH ×2 (08:15→12:05)
[2018-03-16] MEDS: ENOXAPARIN 40 MG/0.4 ML SYR SC SCH (08:15)
--- NOTE | 2018-03-16 12:14 | ASMTLACE ---
LACE Length of stay for Answers: 2 days current admission Acuity / Level of Answers: Yes Care: Did the patient have an inpatient admission? Comorbidities - select Answers: Diabetes (uncontrolled or all that apply controlled) Other Notes: HTN # of Emergency department Answers: 1-2 visits in the last 6 months Score: 8 Date Signed: 03/16/2018 12:13 PM Electronically Signed By:RADHA Kelley
--- NOTE | 2018-03-16 12:23 | ASMTDCNOTE ---
Case Management Discharge Discharge Order Complete? Answers: Yes Patient to Obtain Answers: via Family Medications Transportation Arranged Answers: Family/Friends EMTALA Complete Answers: No Case Management Transport Answers: No Form Complete Faxed Final Orders Answers: Yes Agency/Facility Transfer Answers: Yes Report Printed & Faxed to Receiving Agency Family Notified Answers: No Discharge Comments Notes: Pts case discussed w/ Adelina Alston NP. Pt is being d/c without any needs. CM available for changes. Plan: Independent Date Signed: 03/16/2018 12:22 PM Electronically Signed By:RADHA Kelley
--- NOTE | 2018-03-16 15:34 | GDS ---
DISCHARGE DIAGNOSES: 1. Facial cellulitis. 2. Dental abscess. CONSULTATIONS: 1. Dr. Matute of Maxillary Oral surgery. 2. Infectious Disease. STUDIES AND PROCEDURES DONE: 1. CT of the head. 2. CT of the face. 3. Surgical drainage and extraction of tooth 11. PHYSICAL EXAM: GENERAL: The patient is alert. VITAL SIGNS: Afebrile at 36.7, pulse 65, respiratory rate is 18, blood pressure is 125/68, saturating 92% on room air. I have seen and evaluated the patient on the day of discharge. HOSPITAL COURSE: The patient is a 68-year-old male who presented to the emergency room with complain ts of right facial erythema. He was evaluated and diagnosed with: Right facial cellulitis. During this hospitalization, he received a consultation from Infectious Dis ease as well as Maxillary Oral therapy. The patient was found to have a dental abscess requiring too th extraction of #11. He was placed on IV Ancef during this hospitalization and received surgical in tervention for this condition. He has been transitioned to oral Augmentin at the time of disposition . I have instructed the patient that the antibiotics are not the sole treatment for his underlying p oor dentition. He has an appointment with Dr. Matute on 03/18/2018. I have assured him that if he do es not follow up with Dr. Matute, his infection will not ever completely resolve and will be recurring . He understands this and is in agreement with this plan. I have discussed the patient's dispositio n with Dr. Ramez Day of Infectious Disease who was also in agreement with this plan. DISCHARGE MEDICATIONS: Please refer to EMR form. I have provided a prescription for Augmentin 875 t wice daily and I have continued the patient's previously prescribed home medications as noted. FOLLOW UP: Again will be with Dr. Matute as well as Aziza Alcala, the patient's primary care physician . TIME SPENT WITH PATIENT: I spent greater than 35 minutes in the care, coordination, and management o f this patient's disposition. /[id number]/MODL
[2018-03-16] MEDS ORDERED: metFORMIN HCL 500 MG TAB PO SCH (21:00)
== END 2018-03-16 12:37 | disposition home or self-care (01) | DRG 158 ==
LOC: CED 12:47 → CEDHOLD 15:00 → F3E 18:00 → OBSVTOIN 03-15 10:18
PROVIDERS: ADMIT Internal Medicine; ATTEND Internal Medicine
DX: K04.7 Periapical abscess without sinus (principal); L03.211 Cellulitis of face; E87.6 Hypokalemia; I10 Essential (primary) hypertension; E11.9 Type 2 diabetes mellitus without complications; Z79.4 Long term (current) use of insulin; E78.5 Hyperlipidemia, unspecified; E66.09 Other obesity due to excess calories
CPT/HCPCS: 70450-PO; 70487-PO; 80053-PO; 80076-PO; 82150-PO; 83605-PO; 96365; G0378; J0295; J0690; J1100; J1650; J1815; J2250; J2704; J3010; J3480; Q9967

== ENCOUNTER 2018-06-03 02:15 | Observation (INO) | payer OTHER, MEDICARE ==
[2018-06-03] MEDS ORDERED: ASPIRIN 81 MG CHEWABLE TAB PO ONE (02:56)
--- NOTE | 2018-06-03 03:06 | EDPHY ---
H & P Stated Complaint: SOB since 2199 Time Seen by Provider: 06/03/18 02:56 HPI/ROS: Chief Complaint: Difficulty breathing, neck pain, chest pain HPI: A 68-year-old male with a history of diabetes and hypertension began experience some discomfort in his throat and upper back 5-6 hr ago. He then developed worsening difficulty breathing. Feels that he cannot take a deep breath. It hurts to take a deep breath in his shoulders and below his neck. Also has some central chest tightness. Pain is a 7/10. No cough. No recent illness. No fevers or chills. Has never had a stress test or angiogram. Does not smoke. ROS: 10 systems were reviewed and were negative except those elements noted in the HPI. PMH: Diabetes, hypertension Social History: No smoking, rare alcohol, no recreational drug use Family History: non-contributory Physical Exam: Gen: Awake, Alert, No Distress HEENT: Nose: no rhinorrhea Eyes: PERRLA, EOMI Mouth: Moist mucosa Neck: Supple, no JVD Chest: nontender, lungs clear to auscultation Heart: S1, S2 normal, no murmur Abd: Soft, non-tender, no guarding Back: no CVA tenderness, no midline tenderness Ext: no edema, non-tender Skin: no rash Neuro: CN II-XII intact, Sensation grossly intact, Strength 5/5 in bilateral upper and lower extremities - Personal History Current Tetanus/Diphtheria Vaccine: Yes - Medical/Surgical History Hx Asthma: No Hx Chronic Respiratory Disease: No Hx Diabetes: Yes Hx Cardiac Disease: No Hx Renal Disease: No Hx Cirrhosis: No Hx Alcoholism: No Hx HIV/AIDS: No Hx Splenectomy or Spleen Trauma: No Other PMH: DM 2. Cholecystectomy. [facility] - Social History Smoking Status: Never smoked Constitutional: Initial Vital Signs Temperature (C) 36.9 C 06/03/18 02:19 Heart Rate 100 06/03/18 02:19 Respiratory Rate 18 06/03/18 02:19 Blood Pressure 124/81 H 06/03/18 02:19 O2 Sat (%) 92 06/03/18 02:19 O2 Delivery Mode Room Air O2 (L/minute) 2 Allergies/Adverse Reactions: No Known Allergies Allergy (Verified 03/14/18 20:36) Home Medications: Medication Instructions Recorded Atorvastatin Calcium [Lipitor 20 20 mg PO DAILY 03/14/18 mg (*)] Insulin Detemir [Levemir Flextouch] 90 unit SQ HS 03/14/18 Losartan/Hydrochlorothiazide 1 each PO HS 03/14/18 [Losartan-Hctz 100-25 mg Tab] Propranolol HCl [Inderal Xl] 120 mg PO HS 03/14/18 amLODIPine BESYLATE [Norvasc 10 mg 10 mg PO DAILY 03/14/18 (*)] metFORMIN HCL [Metformin HCl] 1,000 mg PO HS 03/14/18 Medical Decision Making - Diagnostics Imaging Results: Chest x-ray is concerning for a widened mediastinum. Does have cardiomegaly but his mediastinum appears more prominent compared to his last chest x-ray. CT angiogram of the aorta shows no acute aortic aneurysm or dissection, there is a small pericardial effusion, there is a small infiltrate versus atelectasis in the lower lobe, there is a fatty liver and there is diverticulosis with mild circumferential wall thickening of the descending colon. Study interpreted by Dr. Varela, direct Radiology. ED Course/Re-evaluation: Initial chest x-ray concerning for widen mediastinum and given the pain between his shoulder blades patient was taken to CT scan to evaluate his aorta. EKG is negative. Troponin is negative. CT scan is negative. Patient does have a history of diabetes and hypertension has multiple risk factors for coronary disease. I have given him some Toradol for pain here. He has had aspirin. I discussed with Dr. Cameron, hospitalist. She will admit to the PCU for further evaluation. - Data Points Laboratory Results: Laboratory Results 06/03/18 03:00 06/03/18 03:00 06/03/18 06/03/18 06/03/18 03:01 03:00 03:00 WBC RBC Hgb Hct MCV MCH MCHC RDW Plt Count MPV Neut % (Auto) Lymph % (Auto) [place] % (Auto) Eos % (Auto) Baso % (Auto) Nucleat RBC Rel Count Absolute Neuts (auto) Absolute Lymphs (auto) Absolute Monos (auto) Absolute Eos (auto) Absolute Basos (auto) Absolute Nucleated RBC Immature Gran % Immature Gran # D-Dimer 0.37 ug/mLFEU ug/mLFEU (0.00-0.50) Sodium 139 mEq/L mEq/L (135-145) Potassium 3.5 mEq/L mEq/L (3.5-5.2) Chloride 100 mEq/L mEq/L (97-110) Carbon Dioxide 27 mEq/l mEq/l (22-31) Anion Gap 12 mEq/L mEq/L (6-14) BUN 19 mg/dL mg/dL (7-23) Creatinine 0.9 mg/dL mg/dL (0.7-1.3) Estimated GFR > 60 Glucose 189 mg/dL H mg/dL (70-100) Calcium 9.3 mg/dL mg/dL (8.5-10.4) POC Troponin I 0.00 ng/mL ng/mL (0.00-0.08) 06/03/18 03:00 WBC 13.80 10^3/uL H 10^3/uL (3.80-9.50) RBC 5.69 10^6/uL 10^6/uL (4.40-6.38) Hgb 15.2 g/dL g/dL (13.7-17.5) Hct 45.6 % % (40.0-51.0) MCV 80.1 fL L fL (81.5-99.8) MCH 26.7 pg L pg (27.9-34.1) MCHC 33.3 g/dL g/dL (32.4-36.7) RDW 14.8 % % (11.5-15.2) Plt Count 279 10^3/uL 10^3/uL (150-400) MPV 9.7 fL fL (8.7-11.7) Neut % (Auto) 75.1 % H % (39.3-74.2) Lymph % (Auto) 15.7 % % (15.0-45.0) [place] % (Auto) 7.5 % % (4.5-13.0) Eos % (Auto) 0.9 % % (0.6-7.6) Baso % (Auto) 0.4 % % (0.3-1.7) Nucleat RBC Rel Count 0.0 % % (0.0-0.2) Absolute Neuts (auto) 10.37 10^3/uL H 10^3/uL (1.70-6.50) Absolute Lymphs (auto) 2.16 10^3/uL 10^3/uL (1.00-3.00) Absolute Monos (auto) 1.04 10^3/uL H 10^3/uL (0.30-0.80) Absolute Eos (auto) 0.12 10^3/uL 10^3/uL (0.03-0.40) Absolute Basos (auto) 0.06 10^3/uL 10^3/uL (0.02-0.10) Absolute Nucleated RBC 0.00 10^3/uL 10^3/uL (0-0.01) Immature Gran % 0.4 % % (0.0-1.1) Immature Gran # 0.05 10^3/uL 10^3/uL (0.00-0.10) D-Dimer Sodium Potassium Chloride Carbon Dioxide Anion Gap BUN Creatinine Estimated GFR Glucose Calcium POC Troponin I Medications Given: Discontinued Medications Aspirin (Aspirin) 324 mg PO EDNOW ONE Stop: 06/03/18 02:57 Last Admin: 06/03/18 03:06 Dose: 324 mg Point of Care Test Results: Chemistry 06/03/18 03:01 POC Troponin I 0.00 ng/mL ng/mL (0.00-0.08) Departure - Departure Disposition: [facility] Inpatient Acute Clinical Impression: Chest pain Referrals: Aziza Alcala MD [Primary Care Provider] - As per Instructions
[2018-06-03 03:14] LABS: PLATELET COUNT 279 10^3/uL (150-400)
[2018-06-03] MEDS ORDERED: IOHEXOL 350mgI/ML (OMNIPAQUE) 150 ML BTL IV ONE (03:33)
[2018-06-03] MEDS ORDERED: KETOROLAC 15 MG/1 ML SDV IVP ONE (04:47)
--- NOTE | 2018-06-03 05:23 | CPEKG ---
Test Reason : OPEN Blood Pressure : / mmHG Vent. Rate : 094 BPM Atrial Rate : 094 BPM P-R Int : 252 ms QRS Dur : 090 ms QT Int : 364 ms P-R-T Axes : 016 -07 094 degrees QTc Int : 456 ms Sinus rhythm Prolonged CO interval Confirmed by Rojelio Villalta ([id number]) on 06/03/2018 5:22:55 AM Referred By: Rojelio Villalta Confirmed By:Rojelio Villalta
[2018-06-03] MEDS ORDERED: HYDROCODONE/APAP 5/325 TAB PO PRN (05:35)
[2018-06-03] MEDS ORDERED: ONDANSETRON DISINTEGRATING 4 MG TAB PO PRN (05:35)
[2018-06-03] MEDS ORDERED: LORazepam 0.5 MG TAB PO PRN (05:35)
[2018-06-03] MEDS ORDERED: ACETAMINOPHEN 325 MG TAB PO PRN (05:35)
[2018-06-03] MEDS ORDERED: ONDANSETRON 4 MG/2 ML VIAL IVP PRN (05:35)
[2018-06-03] MEDS ORDERED: NITROGLYCERIN 0.4 MG BTL SL PRN (05:38)
[2018-06-03] MEDS ORDERED: D50W 25 GM/50 ML SYR IVP PRN (06:43)
--- NOTE | 2018-06-03 07:13 | PDGENHP ---
History and Physical - Chief Complaint Dyspnea, chest - History of Present Illness Source-patient provides history appears reliable. at bedside supplements details. EMR was reviewed and case discussed with ED provider. HPI this is a very pleasant 68-year-old gentleman with a past medical history significant for diabetes type 2, HTN, HLD, obesity(BMI 36.1) presents emergency department today with complaints of 5-6 hours of increasing shortness of breath , neck pain and chest pain. Patient was in bed when his noted that he seemed to be having more labored breathing. He subsequently woke up went to the bathroom and was having increasing shortness of breath as well as anterior chest pain and shoulder blade pain pain also extended into his neck but patient describes this more of a spasm type pain. He denies any recent fevers or chills. No cough rhinorrhea or sore throat. Patient denies any orthopnea or PND. He has chronic mild lower extremity edema that improves with elevation of legs. He did reports 2 episodes of nausea vomiting 1 before he arrived to the ED and 1 after. He denies any diaphoresis. Patient without any history of cardiac catheterization or stress testing. Family history significant for father with CAD and AR at age 89. History Information - Allergies/Home Medication List Allergies/Adverse Reactions: No Known Allergies Allergy (Verified 03/14/18 20:36) Home Medications: Atorvastatin Calcium [Lipitor 20 mg (*)] 20 mg PO DAILY 03/14/18 [Last Taken Unknown] Insulin Detemir [Levemir Flextouch] 90 unit SQ HS 03/14/18 [Last Taken Unknown] Losartan/Hydrochlorothiazide [Losartan-Hctz 100-25 mg Tab] 1 each PO HS [Last Taken Unknown] Propranolol HCl [Inderal Xl] 120 mg PO HS 03/14/18 [Last Taken Unknown] amLODIPine BESYLATE [Norvasc 10 mg (*)] 10 mg PO DAILY 03/14/18 [Last Taken Unknown] metFORMIN HCL [Metformin HCl] 1,000 mg PO HS 03/14/18 [Last Taken Unknown] I have personally reviewed and updated: family history, medical history, social history, surgical history - Past Medical History diabetes type 2, hypertension, hyperlipidemia - Surgical History Reports: cholecystectomy Additional surgical history: shoulder surgery - Family History Positive for: non-pertinent - Social History Smoking Status: Never smoked Additional social history: owns a [employer] Review of Systems Review of Systems: ROS: 10pt was reviewed & negative except for what was stated in HPI & below Physical Exam Physical Exam: Temp Pulse Resp BP Pulse Ox 36.8 C 96 21 H 151/91 H 94 06/03/18 06:45 06/03/18 06:45 06/03/18 06:45 06/03/18 06:45 06/03/18 06:45 O2 (L/minute) 2 Constitutional: no apparent distress, appears nourished, chronically ill appearing, obese, other (NAD. Pleasant adult gentleman is sitting up in relizabeth. at bedside.) Eyes: PERRL (Slightly decreased reactivity light bilaterally but symmetric.), anicteric sclera, EOMI, No scleral injection Ears, Nose, Mouth, Throat: moist mucous membranes, other (Rhinophyma, no nasal discharge.), No poor dentition Cardiovascular: regular rate and rhythym, no murmur, rub, or gallop, pulses symmetric bilaterally, edema (Trace pitting edema lower extremities.) Peripheral Pulses: 1+: dorsalis-pedis (R), dorsalis-pedis (L) Respiratory: no respiratory distress (Patient does have some increased work of breathing with movement.), clear to auscultation, inspiratory crackles ( Occasional at the left base.), No reduced air movement, No respiratory distress Gastrointestinal: normoactive bowel sounds, soft, non-tender abdomen, no palpable masses, other (Obese abdomen), No distension Genitourinary: no bladder tenderness, No andersen in urethra Skin: warm, normal color, no rashes or abrasions Musculoskeletal: full muscle strength (Patient sits up independently.) Neurologic: AAOx3, sensation intact bilaterally, other (Moves all extremities as noted above.), No facial droop Psychiatric: interacting appropriately, not anxious, not encephalopathic, thought process linear Lab Data & Imaging Review 06/03/18 03:00 06/03/18 03:00 WBC 13.80 10^3/uL (3.80-9.50) H 06/03/18 03:00 RBC 5.69 10^6/uL (4.40-6.38) 06/03/18 03:00 Hgb 15.2 g/dL (13.7-17.5) 06/03/18 03:00 Hct 45.6 % (40.0-51.0) 06/03/18 03:00 MCV 80.1 fL (81.5-99.8) L 06/03/18 03:00 MCH 26.7 pg (27.9-34.1) L 06/03/18 03:00 MCHC 33.3 g/dL (32.4-36.7) 06/03/18 03:00 RDW 14.8 % (11.5-15.2) 06/03/18 03:00 Plt Count 279 10^3/uL (150-400) 06/03/18 03:00 MPV 9.7 fL (8.7-11.7) 06/03/18 03:00 Neut % (Auto) 75.1 % (39.3-74.2) H 06/03/18 03:00 Lymph % (Auto) 15.7 % (15.0-45.0) 06/03/18 03:00 [place] % (Auto) 7.5 % (4.5-13.0) 06/03/18 03:00 Eos % (Auto) 0.9 % (0.6-7.6) 06/03/18 03:00 Baso % (Auto) 0.4 % (0.3-1.7) 06/03/18 03:00 Nucleat RBC Rel Count 0.0 % (0.0-0.2) 06/03/18 03:00 Absolute Neuts (auto) 10.37 10^3/uL (1.70-6.50) H 06/03/18 03:00 Absolute Lymphs (auto) 2.16 10^3/uL (1.00-3.00) 06/03/18 03:00 Absolute Monos (auto) 1.04 10^3/uL (0.30-0.80) H 06/03/18 03:00 Absolute Eos (auto) 0.12 10^3/uL (0.03-0.40) 06/03/18 03:00 Absolute Basos (auto) 0.06 10^3/uL (0.02-0.10) 06/03/18 03:00 Absolute Nucleated RBC 0.00 10^3/uL (0-0.01) 06/03/18 03:00 Immature Gran % 0.4 % (0.0-1.1) 06/03/18 03:00 Immature Gran # 0.05 10^3/uL (0.00-0.10) 06/03/18 03:00 D-Dimer 0.37 ug/mLFEU (0.00-0.50) 06/03/18 03:00 Sodium 139 mEq/L (135-145) 06/03/18 03:00 Potassium 3.5 mEq/L (3.5-5.2) 06/03/18 03:00 Chloride 100 mEq/L (97-110) 06/03/18 03:00 Carbon Dioxide 27 mEq/l (22-31) 06/03/18 03:00 Anion Gap 12 mEq/L (6-14) 06/03/18 03:00 BUN 19 mg/dL (7-23) 06/03/18 03:00 Creatinine 0.9 mg/dL (0.7-1.3) 06/03/18 03:00 Estimated GFR > 60 06/03/18 03:00 Glucose 189 mg/dL (70-100) H 06/03/18 03:00 Calcium 9.3 mg/dL (8.5-10.4) 06/03/18 03:00 POC Troponin I 0.00 ng/mL (0.00-0.08) 06/03/18 03:01 Imaging Review: Angio Chest W IV Contrast, Angio Abdomen W IV Contrast History: aortic dissection protocol. Chest pain Comparison: None available. Technique: Multiplanar images were acquired after the administration of 120 mL intravenous contrast. Dose reduction techniques were utilized. Findings: Angio: No evidence of aortic dissection or aneurysm. Branch vessels are patent. No central pulmonary embolus is seen. Non-angio: There is left lung base ground glass opacity, likely atelectasis. No pleural effusion or pneumothorax. The heart is mildly enlarged and a small pericardial effusion. The thyroid is homogenous is density. Nonenlarged mediastinal and hilar lymph nodes. Axillary nodes are normal. The liver, spleen, bilateral adrenals, and pancreas are within normal limits. The gallbladder is surgically removed. The kidneys are normal in size and morphology, without hydronephrosis or hydroureter. There are nonenlarged retroperitoneal and mesenteric lymph nodes. The colon and small bowel are normal in caliber, without evidence of obstruction. Distal colon is mildly thickened but this is probably related to underdistention. Mild degenerative changes of the thoracic spine are evident. Impression: 1. No evidence of aortic dissection or aneurysm. 2. Likely left lung base atelectasis. 3. Small pericardial effusion. Dictated By: Meka Kothari MD Chest, Two Views June 03, 2018 0304 hours History: SOB. Comparison: July 2006. Findings: Cardiac silhouette is mildly enlarged. No definite pneumonia. No congestive heart failure, pleural effusion, or pneumothorax. Impression: 1. Cardiomegaly. 2. No definite pneumonia or pulmonary edema. 3. Consider chest two views when the patient's medical condition permits. Dictated By: Rex Guerrero Visualized and Interpreted Chest x-ray results: Yes Visualized and Interpreted imaging results: Yes EKG additional interpertation: NSR in the 90s. Prolonged p.r.n. Will. No acute ST changes. QTC 456. Assessment & Plan Assessment: Pleasant 68 yo M with pmhx significant for DM II, HTN, obesity (BMI 36.1) who presents to the ED with several hours of dyspnea, chest and back pain. #Chest pain (Acute) - ddx including angina vs msk vs pleuritic. CTA neg for PE, dissection. noted is a small pericardial effusion and cardiomegaly. no infiltrates. Slight atelectasis is noted. If patient should develop upper respiratory type symptoms will plan to check respiratory PCR however at this point he denies any. patient does endorse more of a pleuritic component, he also notes intermittent shoulder blade pain. Patient HEART score is 4. initial troponin and ekg negative. serial trops. echocardiogram. consideration for treadmill stress if patient has improvement in his dyspnea or NM stress. no orthopnea, PND. chronic mild LE edema per patient. Will check a A1c and lipid panel. #Dyspnea - see above. Chronic medical issues #benign essential HTN - resume patient's home medications including amlodipine, lisinopril and HCTZ. Resume beta-tra following stress. #Dm 2 - sliding scale insulin. Patient's plan to bring his home Levemir. Patient currently NPO. ADA diet after testing. Check A1c. #obesity (BMI 36.1) lifestyle and dietary modifications will be encouraged. # HLD-check lipid panel. FEN - SLIV. npo pending studies as above. PPX - SCDs. consider lovenox if patient should stay additional day. COR - FULL Dispo - Patient admitted to observation on PCU for close cardiac monitoring.
--- NOTE | 2018-06-03 09:45 | ECHO ---
[email or web address] [address] [address] Main: [phone] Fax: [email or web address] Echocardiogram Name: NADINE DOBBINS MR#: [id number] Study Date: 06/03/2018 Study Time: 08:40 AM Date of : 1950 Age: 68 year(s) Height: 185.4 cm (73 in.) Weight: 115.67 kg (255 lb.) BSA: 2.39 m2 Gender: Male Examination: Echo Indication: Chest Pain, Cardiac: dyspnea Image Quality: Contrast: Requested by: Elizabeth Cameron BP: 151 mmHg/91 mmHg Heart Rate: Rhythm: Tachycardia Indication: Chest Pain, Cardiac: dyspnea Procedure Staff Folder Seamer: Shaggy Carvajal RDCS Reading Physician: Jace Marques MD Requesting Provider: Conclusions: Moderate pericardial effusion. No echo suggestion of tamponade physiology. Ejection fraction 62%. No significant valvular abnormalities by Doppler or 2 dimensional study. Measurements: Chambers Valvular Assessment AV/MV Valvular Assessment TV/PV Normal Normal Normal Name Value Range Name Value Range Name Value Range Ao Adriana (MM): 3.1 cm (2.2 cm-3.7 AV Vmax: 1.48 m/s (1 m/s-1.7 TR Vmax: 2.40 mm/s ( - ) cm) m/s) TR PGmax: 23 mmHg ( - ) IVSd (2D): 1.5 cm (0.6 cm-1.1 AV maxP mmHg ( - ) syst. PAP: 28 mmHg ( - ) cm) LVOT Vmax: 1.16 m/s (0.7 m/s-1.1 LVDd (2D): 4.9 cm (4.2 cm-5.9 m/s) cm) MV E Vmax: 0.74 m/s ( - ) LVDs (2D): 3.2 cm (2.1 cm-4 MV A Vmax: 0.99 m/s ( - ) cm) MV E/A: 0.75 ( - ) LVPWd (2D): 1.4 cm (0.6 cm-1 cm) LVEF (2D): 62 (>=54 %) Continued Measurements: Valvular Assessment AV/MV Valvular Assessment TV/PV Name Value Name Value MV E' Septal: 0.05 m/s CVP (est.): 5 mmHg MV E/E' Septal: 14.40 MV E/E' Lateral: 9.20 Findings: Left Ventricle: Patient: NADINE DOBBINS Study Date: 06/03/2018 Page 1 of 2 08:40 AM Normal size left ventricle. Mild to moderate LVH. Global hypercontractility of the left ventricle. EF is 62 %. No regional wall motion abnormality. Grade 1 diastolic dysfunction (abnormal relaxation). Right Ventricle: Normal size right ventricle. Normal RV function. Left Atrium: The left atrium is normal in size. Right Atrium: The right atrium is normal in size. Mitral Valve: The mitral valve is normal in appearance and function. There is no significant mitral valve regurgitation. No mitral stenosis is present. Aortic Valve: The aortic valve is tri-leaflet. The aortic valve is normal in appearance and function. Tricuspid Valve: The tricuspid valve is normal in appearance and function. Trivial tricuspid valve regurgitation. There is no significant tricuspid valve regurgitation. Pulmonic Valve: The pulmonic valve is normal in appearance and function. Aorta: The aorta is normal. Pericardium: Small to moderate pericardial effusion. No echocardiographic evidence of hemodynamic compromise. (No Signature Object) Patient: NADINE DOBBINS Study Date: 06/03/2018 Page 2 of 2 08:40 AM [id number]
[2018-06-03] MEDS: INSULIN LISPRO 100 UNIT/ML SC SCH ×2 (09:48→14:38)
[2018-06-03] MEDS ORDERED: REGADENOSON 0.4 MG/5 ML SYR IVP ONE (11:21)
--- NOTE | 2018-06-03 11:31 | ASMTCMCOM ---
CM Note CM Note Notes: Pt is a 68 y/o man admitted for chest pain and dyspnea. Pt will most likely d/c independent when medically stable. CM available for changes. Plan: Independent Date Signed: 06/03/2018 11:31 AM Electronically Signed By:RADHA Kelley
[2018-06-03 12:34] VITALS: BP 114/65
--- NOTE | 2018-06-03 12:42 | CPR ---
[f rep st] NONINVASIVE CARDIAC PROCEDURE REPORT DATE OF PROCEDURE: 06/03/2018 PROCEDURE: Lexiscan nuclear stress test. REASON FOR TEST: Shortness of breath, radiating back pain. Resting EKG shows a sinus rhythm. Q-waves are noted in the inferior leads. Anterior late R-wave pro gression is noted. No arrhythmias. Resting blood pressure 164/90, resting heart rate 91, oxygen sat uration 91%. Prior to testing, he is asymptomatic. STRESS PORTION: Lexiscan was injected rapidly followed by saline flush. Cardiolite was then injecte d followed by saline flush. He did become short of breath with back pain after the injection, oxygen saturations 93%, blood pressure 150/90, peak heart rate 106. No EKG changes were noted. RECOVERY: He did spontaneously recover. Recovery blood pressure 146/84, heart rate 101, oxygen satu ration 91%. He is asymptomatic at the conclusion of recovery. There were no EKG changes. At this time he currently is stable for nuclear imaging. /[id number]/MODL
--- NOTE | 2018-06-03 14:57 | PDDCSUM ---
Discharge Summary Discharge Summary: Date of Admission/Discharge: 06/03/2018 Consults: N/A Procedures: TTE, MPS Followup: PCP Hospital Course Problem List: Pleasant 68 yo M with pmhx significant for DM II, HTN, obesity (BMI 36.1) who presented to [facility] with several hours of dyspnea, chest and back pain. #Chest pain (Acute) - Ddx including angina vs msk vs pleuritic. - CTA on admission negative for PE, dissection. no - Initial troponin and ekg negative. - TTE performed which showed moderate pericardial effusion, no tamponade physiology noted - MPS performed this AM which showed no reversible ischemia Chronic medical issues #benign essential HTN - resume patient's home medications including amlodipine, lisinopril and HCTZ. Resume beta-tra following stress. #Dm 2 - sliding scale insulin while IP #obesity (BMI 36.1) lifestyle and dietary modifications encouraged. Time spent on discharge was >35 minutes with >50% of time spent on patient education and counseling
[2018-06-03] MEDS ORDERED: ATORVASTATIN CALCIUM 20 MG TAB PO SCH (21:00)
[2018-06-03] MEDS ORDERED: PROPRANOLOL SR 60 MG CAP PO SCH (21:00)
[2018-06-03] MEDS ORDERED: LOSARTAN/HCTZ 50/12.5 1 TAB PO SCH (21:00)
[2018-06-03] MEDS ORDERED: INSULIN LISPRO 100 UNIT/ML SC SCH (21:00)
== END 2018-06-03 15:23 | disposition home or self-care (01) ==
LOC: F2W 06:20
PROVIDERS: ADMIT Family Medicine; ATTEND Internal Medicine
DX: R07.9 Chest pain, unspecified (principal); R06.00 Dyspnea, unspecified; E11.9 Type 2 diabetes mellitus without complications; I31.3 Pericardial effusion (noninflammatory); I10 Essential (primary) hypertension; E66.9 Obesity, unspecified; Z68.36 Body mass index [BMI] 36.0-36.9, adult; K76.0 Fatty (change of) liver, not elsewhere classified; Z79.4 Long term (current) use of insulin; Z82.49 Family history of ischemic heart disease and other diseases of the circulatory system
CPT/HCPCS: 71046; 71275; 74175; 78452; 93005; 93017; 93306; 96372; 96374; 99285; A9500; G0378; J1885; J2785; Q9967; 84484-ER